=== PATIENT | female | born 2000 | race Caucasian/White ===

== ENCOUNTER → 2025-06-24 | Day surgery (SDC) | payer BC ==
[~2025-06-24] MED LIST: Acetaminophen 500 MG TAB ONE
[2025-06-24] MEDS: Acetaminophen 500 MG TAB PO SCH (09:49)
[2025-06-24 16:57] VITALS: BP 115/63; TEMP 98.6
== END ==
LOC: ONC/OP 09:45
PROVIDERS: ATTEND Advanced Practice Midwife
DX: O99.019 Anemia complicating pregnancy, unspecified trimester (principal); Z3A.00 Weeks of gestation of pregnancy not specified
CPT/HCPCS: J1756; J7050